=== PATIENT | female | born 1935 | race Two or more races ===

== ENCOUNTER 2016-10-21 10:43 | Emergency (ER) | payer MEDICAID ==
--- NOTE | 2016-10-21 11:14 | ED Physician Chart ---
Chief Complaint/HPI - Patient Information Date Seen:: 10/21/16 Time Seen:: 20:00 Chief Complaint:: abd. "fullness", denies "pain" History of Present Illness:: Pt. has continued abd. "fullness", not pain. Was here 2015 and got patoprazole and metronidazole for "diverticulitis". Pt. in meat[place] was seen at [facility]. Pt. refuses blood tests of any kind. S/P caio, but denies other abd. surg. Allergies:: Allergies Allergy/AdvReac Type Severity Reaction Status Date / Time No Known Allergies Allergy Verified 09/28/16 17:44 Vitals:: 98.1, 81, 171/68, 16, 98% Historian:: Patient, Family Member (daughter) LMP:: remote past Review of Systems - Review of Systems General/Constitutional: No fever Skin: No skin lesions Head: No headache Eyes: No loss of vision Neck: No neck pain Cardio Vascular: No chest pain, No palpitations, No PND, No orthopnea Pulmonary: No SOB, No cough, No sputum, No wheezing GI: No nausea, No diarrhea, No pain, Other (Pt. complains of sensation of "fullness" only. Hx hemorroids.) G/U: No dysuria, No frequency Implementation Specialist: No vaginal discharge Musculoskeletal: No bone or joint pain Psychiatric: No prior psych history Neurological: No syncope, No focal symptoms Past Medical History - Past Medical History Past Medical History: HTN, CAD, Other (colitis) Family History: Other (no other known congenital disease) Social History: Non Smoker, No Alcohol Surgical History: Cholecystectomy Other PMH History: Pt. refules blood draw. 2015 results follow: WBC 5.0. H/H nl. CMP shows K of 3.2, Cl of 108 and Ammonia of 67 (no current asterixis. Medication: Reviewed (thylenol, asa, atenolol, famitidine, lasic, thyroid, cozaar, nitrobid, amlodipine and metronidazole and protonix) Family Medical History - Family Member Mother History Unknown: Yes Ethnicity: Living Status: Hx Family Cancer: No Hx Family Coronary Artery Disease: No Hx Family Congestive Heart Failure: No Hx Family Hypertension: Yes Hx Family Stroke: No Hx Family Diabetes: No Hx Family Seizures: No Hx Family Dementia: No Hx Family AIDS: No Hx Family HIV: No Hx Family COPD: No Hx Family Hepatitis: No Hx Family Psychiatric Problems: No Hx Family Tuberculosis: No Physical Exam - Physical Examination General/Constitutional: Awake, Well-developed, well-nourished, Alert, No distress, GCS 15, Non-toxic appearing, Ambulatory Head: Atraumatic Eyes: Lids, conjuctiva normal, PERRL, EOMI Skin: Nl inspection, No rash, No skin lesions, No ecchymosis, Well hydrated, No lymphadenopathy ENMT: External ears, nose nl, TM canals nl, Nasal exam nl, Lips, teeth, gums nl , Oropharynx nl, Tonsils nl Neck: Nontender, Full ROM w/o pain, No JVD, No nuchal rigidity, No stridor Respiratory: Nl effort/Exclusion, Clear to Auscultation, No Wheeze/Rhonchi/Rales Cardio Vascular: RRR, No murmur, gallop, rubs, NL S1 S2, Carotid/Femoral/Distal pulses equal bilaterally GI: No tenderness/rebounding/guarding, No organomegaly, No hernia, Normal BS's, Nondistended, No mass/bruits : No CVA tenderness Extremities: No tenderness or effusion, Full ROM, normal strength in all extremities, No edema, Normal digits & nails Neuro/Psych: Alert/oriented, Normal sensory exam, Normal motor strength, Judgement/insight normal, Mood normal, Normal gait, No focal deficits Misc: Normal back Labs/Radiology/EKG Results - Lab Results Results: EKG shows NSR with rate 68 nl axis and LVH. Nonspecific ST changes. Urine is unremarkable. CT: Evidence of cholecytectomy with diffuse pneumobilia noted. Clinical correlation recommended. Mildly prominent liver with mild irregularity of the hepatic borders. Please correlate clinically for hepatocellular disease and possible early cirrhotic changes. 1n8 cm R adnexal cystic lesion. " "No evidence of acute appendicitis. Moderate amount of stool. Diffuse atherosclerotic vascular disease. Degenerative changes." Discussed with pt. and daughter need to F/U with PCP. Pt. states no alohol. Need for colonoscopy emphasized. Referred to Dr. Alvares's group. Pt. continues to refuse blood test. Pt. is taking Flagyl only with hx of diverticulitis. Will add Cipro and refer to PCP/gastroenterology for other problems mentioned. Explained to patient and daughter in [place]. Both refused again blood tests. An ultrasound was done. 1358: A R sided cyst approx. 2 cm visualized on US, cannot determine if in ovary. ED Septic Shock - . Is Septic Shock (SBP<90, OR Lactate>4 mmol\\L) present?: No Reassessment (Disposition) - Reassessment Reassessment Condition:: Unchanged - Diagnosis Diagnosis:: 1. Acute abdominal pain with hx "Colitis"/"diverticulitis" 2. Adnexal Cyst 3. Pneumobilia, s/p cholecystectomy 4. Possible liver disease. - Aftercare/Follow up Instructions Aftercare/Follow-Up Instructions:: Counseled pt regarding lab results/diagnosis & need follow up, Refer to Discharge Instructions, Counseled pt & family regarding lab results/diagnosis & need follow up (Pt. needs colonoscopy. Liver disease and cystic change noted.. Refused blood test.) Medication Prescribed:: Rx: Levaquin 500 mg. one po q day X7 days. Disp. #7. No refill. - Patient Disposition Discharge/Transfer:: Home Condition at Disposition:: Stable ED Discharge Plan - Patient Disposition Admit/Discharge/Transfer: PT DISCHARGED HOME Condition at Disposition: Stable
[2016-10-21 11:20] LABS: URINE BILIRUBIN NEGATIVE (NEGATIVE); URINE BLOOD NEGATIVE (NEGATIVE); URINE COLOR YELLOW; URINE GLUCOSE (UA) NEGATIVE (NEGATIVE); URINE KETONE NEGATIVE (NEGATIVE); URINE PROTEIN NEGATIVE (NEGATIVE); URINE UROBILINOGEN 0.2 E.U./dL (0.2 - 1.0)
[2016-10-21 11:26] LABS: URINE BACTERIA NONE SEEN /hpf (NONE SEEN); URINE EPITHELIAL CELLS FEW /lpf (FEW); URINE RBC NONE SEEN /hpf (0-5); URINE WBC 0-2 /hpf (0-5)
--- NOTE | 2016-10-21 12:20 | Diagnostic Imaging Report ---
CT abdomen and pelvis without intravenous contrast Indication: Abdominal pain Comparison: None, Technique: Axial images were obtained from the lung bases to the bilateral proximal femurs without IV contrast. Coronal reconstructions were made. total DLP: 649, CTDI14.7 FINDINGS: Atelectatic changes of the lung bases are noted. Assessment of the solid organs is limited due to lack of IV contrast. 2 mm hepatic granulomas noted. The patient is status post cholecystectomy. Pneumobilia is noted. Mild hepatomegaly seen with mildly irregular borders. No evidence of focal lesions. No focal splenic or pancreatic lesions. No focal adrenal lesions. No hydronephrosis or nephrolithiasis. A moderate amount of stool is noted. No appendicitis. A 1.8 cm right adnexal cystic lesion is noted. Diffuse atherosclerosis is noted. Degenerative changes of the spine are noted advanced along the lower lumbar spine. There is 2 mm anterolisthesis of L4 on L5 likely due to facet arthropathy. IMPRESSION: Evidence of cholecystectomy with diffuse pneumobilia noted. Clinical correlation recommended Mildly prominent liver with mild irregularity of the hepatic borders. Please correlate clinically for Hepatocellular disease and possible early cirrhotic changes. 1.8 cm right adnexal cystic lesion. Given patient's age, short-term follow-up ultrasound is recommended No evidence of acute appendicitis. Moderate amount of stool Diffuse atherosclerotic vascular disease. Degenerative changes.
--- NOTE | 2016-10-21 14:39 | Diagnostic Imaging Report ---
Ultrasound pelvis HISTORY: Right adnexal cysts. Patient is postmenopausal. COMPARISON: CT abdomen and pelvis the same day Technique: Longitudinal and transverse sonographic sector images of the pelvis were obtained transabdominally. The uterus and ovaries are not visualized. There is a right adnexal cystic lesion measuring 2.6 cm. No patient refused transvaginal images. No evidence of free fluid. IMPRESSION: Nonvisualization of the uterus and ovaries possibly due to atrophy. A right adnexal cystic lesion is seen measuring 2.6 cm. Clinical correlation and short-term follow-up surveillance ultrasound in 4-6 weeks is recommended. No evidence of free fluid. Note exam was limited as patient refused transvaginal images.
== END 2016-10-21 13:30 | disposition home or self-care (01) ==
LOC: ER 10:43
DX: R10.9 Unspecified abdominal pain (principal); N85.8 Other specified noninflammatory disorders of uterus; K83.8 Other specified diseases of biliary tract; I10 Essential (primary) hypertension; I25.10 Atherosclerotic heart disease of native coronary artery without angina pectoris; Z90.49 Acquired absence of other specified parts of digestive tract
CPT/HCPCS: 76856-TC; 81001-TC; 93005